=== PATIENT | female | born 1990 | race Caucasian/White ===

== ENCOUNTER 2022-01-28 12:30 | Emergency (ER) | payer OTHER, SELFPAY ==
[2022-01-28] VITALS (10 sets, daily range): BP systolic 125–136; BP diastolic 72–77; PULSE 62–84; RESP 16–17; TEMP 36.9; O2SAT 99–100
--- NOTE | ~2022-01-28 | US_ITS ---
EXAMINATION: US abdomen limited DATE: 01/28/2022 15:56 INDICATION: RUQ pain, nausea, vomiting TECHNIQUE: Multiple grayscale and Doppler ultrasound images of limited portions of the abdomen were o btained. COMPARISON: None available. FINDINGS: Not visualized due to bowel gas. The liver parenchyma is echogenic. No surface nodularity. Normal hepatopetal flow in the main portal vein. The gallbladder is normal with no abnormal wall thic kening, pericholecystic fluid or stones. The common bile duct measures 2 mm. There was no sonographic Coyne sign. IMPRESSION: Pancreas not visualized. Echogenic liver, most commonly due to steatosis but also can be seen with he patitis and fibrosis. Reviewed, dictated and finalized at [facility]. IMPRESSION: Pancreas not visualized. Echogenic liver, most commonly due to steatosis but al so can be seen with hepatitis and fibrosis.
--- NOTE | ~2022-01-28 | CT_ITS ---
EXAMINATION: CT abdomen pelvis w con DATE: 01/28/2022 16:22 INDICATION: Upper abdominal pain, nausea, vomiting and diarrhea. TECHNIQUE: Computed tomography (CT) of the abdomen and pelvis was performed with 100 CC Omnipaque 350 intravenous contrast. Automated exposure control and iterative reconstruction technique were employe d. Exam dose: 780.23 mGy-cm total exam DLP. COMPARISON: 01/28/2022 abdominal ultrasound Limited examination FINDINGS: The lung bases are clear of infiltrate or consolidation. Normal heart size. No pericardial or pleural effusion. Hepatic steatosis. No hepatic space-occupying mass lesion. The gallbladder appears unremarkable. No b ile duct or pancreatic duct dilatation. No pancreatic mass lesion or calcification. Normal splenic si ze. Normal morphology of the adrenal glands. Occasional bilateral renal cysts measuring up to 1.6 cm on the left and 2 cm on the right. No urinary tract calculus or hydroureteronephrosis. The urinary bladder is unremarkable. There is an IUD within the uterus. Approximately 1.8 cm right ovarian cyst. Adnexal areas are otherwi se unremarkable. Normal caliber of the abdominal aorta. No intraperitoneal or retroperitoneal or pelvic mass lesion or adenopathy or ascites. There is some nonspecific shotty bilateral inguinal lymph nodes. Normal appendix. No bowel obstruction, bowel wall thickening, pneumatosis or intraperitoneal free air . Small fat-containing umbilical hernia. Included skeletal structures are unremarkable. IMPRESSION: Hepatic steatosis Bilateral renal cysts IUD within uterus 1.8 cm right ovarian cyst Normal appendix Reviewed, dictated and finalized at [facility]. Reviewed, dictated and finalized at location [facility].
[2022-01-28 12:59] LABS: Alanine Aminotransferase 29 U/L (6-35); Albumin Level 4.5 g/dL (3.5-5.1); Alkaline Phosphatase 77 U/L (38-126); Anion Gap 5 mmol/L (8-16); Aspartate Amino Transferase 32 U/L (14-36); Bilirubin,Total 0.7 mg/dL (0.2-1.3); Blood Urea Nitrogen 8 mg/dL (7-17); Calcium 8.7 mg/dL (8.4-10.2); Carbon Dioxide 22 mmol/L (22-30); Chloride 107 mmol/L (98-107); Estimated CRCL calculation 124 ml/min; Estimated Glomerular Filt Rate > 60; Glucose 109 mg/dL (65-110); Lipase 91 U/L (23-300); Potassium 3.8 mmol/L (3.4-5.0); Sodium 134 mmol/L (137-145)
[2022-01-28 13:33] LABS: Basophils Absolute Auto 0.1 K/mm3 (0.0-0.1); Basophils Percent Auto 0.7 % (0.2-1.2); Eosinophils Absolute Auto 0.2 K/mm3 (0-0.3); Eosinophils Percent Auto 2.8 % (0-4.4); Hematocrit 34.7 % (37.0-47.0); Hemoglobin 10.7 g/dL (12.0-15.0); Immature Granulocyte Absolute 0.02 K/mm3 (0.00-0.031); Immature Granulocyte Percent A 0.3 % (0-0.5); Immature Platelet Fraction Pct 4.9 % (0.9-11.2); Lymphocytes Absolute Auto 1.76 K/mm3 (0.9-3.2); Lymphocytes Percent Auto 26.1 % (18.3-44.2); Mean Corpuscular HGB Conc 30.8 g/dl (32-36); Mean Corpuscular Hemoglobin 20.4 pg (26-34); Mean Corpuscular Volume 66.1 fl (80-100); Monocytes Absolute Auto 0.4 K/mm3 (0.1-0.6); Monocytes Percent Auto 6.4 % (2.6-8.5); Neutrophils Absolute Auto 4.3 K/mm3 (1.3-6.7); Neutrophils Percent Auto 63.7 % (45.5-73.1); Platelet Count Result 226 k/mm3 (150-375); Red Blood Count 5.25 M/mm3 (4.2-5.4); Red Cell Distribution Width 21.8 % (11.5-14.5); White Blood Count 6.7 K/mm3 (4.5-10.0)
[2022-01-28 14:07] LABS: Anisocytosis 1+ (NORMAL); Hypochromasia 1+ (NORMAL); Platelet Estimate Adequate (Adequate)
--- NOTE | 2022-01-28 15:16 | ED.ABDPAIN ---
HPI - Abdominal Pain General Chief Complaint: Abdominal Pain Stated Complaint: abd pain, n/v Time Seen by Provider: 01/28/22 15:02 History of Present Illness HPI narrative: Patient is a 31-year-old female with a history of hepatitis C here for evaluation of nausea, vomiting and abdominal pain over the past day. Patient states that she was eating [employer] yesterday and senior care through eating her burger she began to feel nauseated. She threw up this morning once, and has felt nauseated all day. Additionally notes that she has had some right upper abdominal discomfort today. She is not attempted any p.o. today. Additionally reporting a diffuse frontal headache today that is mild in nature. Denies visual changes, weakness, neck stiffness. No neck pain, chest pain, shortness of breath, fevers, chills, loss of consciousness, diarrhea, constipation. Related Data Home Medications Medication Instructions Recorded Confirmed drospirenone (contraceptive) 4 mg 4 mg PO DAILY 07/28/21 (28) tablet (Slynd) levonorgestrel 20 mcg/24 hours (7 1 device intrauterine ONCE 07/28/21 yrs) 52 mg intrauterine device (Mirena) Allergies Allergy/AdvReac Type Severity Reaction Status Date / Time melatonin Allergy Severe Swelling Verified 01/28/22 12:37 Review of Systems Review of Systems: Gen: Denies fevers or chills Eyes: Denies eye pain or visual change ENT: Denies congestion Respiratory: Denies shortness of breath or cough CV: Denies chest pain or palpitations GI: Reports abdominal pain, nausea, vomiting. Denies diarrhea : denies burning, urgency, frequency or hematuria Musculoskeletal: Denies back pain or muscle pain Neuro: Reports frontal headache. Denies numbness, tingling, weakness or focal weakness Skin: Denies rash Except as documented, all other systems reviewed and negative PMFSH Surgical History Surgical History History of dilation and curettage History of gynecological procedure Mirena iud insertion - 07/28/2021 History of tubal ligation Family History Family History (Updated 07/28/21 @ 10:10 by Andreea Saldana MA) Son Asthma Grandparent Diabetes mellitus Heart disease Sibling Diabetes mellitus Mother Heart disease Social History Social History (Updated 07/28/21 @ 10:11 by Andreea Saldana MA) Smoking packs per day: 0.5 Smoking cigarettes per day: 10.0 Smoking status: Current some day smoker Tobacco type: cigarettes Alcohol intake: never Substance use: current Substance use type: marijuana 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 Normocephalic, atraumatic, OMM Neck: No meningismus. Full range of motion to the neck. RESPIRATORY: No respiratory distress. Clear to auscultation bilaterally with no rhonchi wheezing or rales. CARDIOVASCULAR: Regular rate and rhythm without murmurs rubs or gallops. ABDOMINAL: Tender to palpation in right upper quadrant. Soft, nondistended, no rebound tenderness or guarding MUSCULOSKELETAL: Moves all extremities. No clubbing, cyanosis or edema. NEURO: CN II-XII intact. Awake and alert. Following commands, speech normal, no focal deficits SKIN: Warm, dry. No rashes lesions or abrasions PSYCHIATRIC: Normal affect/mood Course Vital Signs Vital signs: Vital Signs Temperature 98.5 F 01/28/22 12:35 Pulse Rate 81 01/28/22 12:35 Respiratory Rate 16 01/28/22 12:35 Blood Pressure 136/74 01/28/22 12:35 Pulse Oximetry 99 01/28/22 12:35 Oxygen Delivery Room Air 01/28/22 12:35 Temperature 98.5 F 01/28/22 12:35 Pulse Rate 62 01/28/22 17:28 Respiratory Rate 17
[2022-01-28] MEDS: SODIUM CHLORIDE 0.9% IV 1,000 ML 999 ML IV CONT (15:28)
[2022-01-28] MEDS: ONDANSETRON INJ 4 MG/2 ML VIAL IV PUSH (15:28)
[2022-01-28] MEDS: diphenhydrAMINE HCl INJ 50 MG/ML VIAL 25 MG IV PUSH (16:25)
[2022-01-28] MEDS: METOCLOPRAMIDE HCL INJ 10 MG/2 ML VIAL IV PUSH (16:25)
[2022-01-28] MEDS: FAMOTIDINE 20 MG/2 ML VIAL IV PUSH (16:26)
[2022-01-28 16:46] LABS: Appearance Urine Clear (Clear); Bilirubin Urine Negative (Negative); Blood Urine 2+ (Negative); Color Urine Yellow (Yellow); Glucose Urine UA Negative (Negative); Ketones Urine Negative (Negative); Leukocyte Esterase Ur Trace LEU/UL (Negative); Nitrate Urine Negative (Negative); Protein Urine Negative (Negative); Specific Grav Ur 1.015 (1.001-1.035)
[2022-01-28 16:52] LABS: Bacteria Urine Trace /hpf; RBC Urine 0-2 /hpf (0-2); Squamous Epithelial Cell Urine Occasional /hpf (Few); WBC Urine 0-3 /hpf
[2022-01-28 16:56] LABS: Add Urine Microscopic? YES
== END 2022-01-28 17:29 | disposition home or self-care (01) ==
PROVIDERS: Emergency Medicine; Emergency Provider Emergency Medicine
DX: K52.9 Noninfective gastroenteritis and colitis, unspecified (principal); B19.20 Unspecified viral hepatitis C without hepatic coma; F17.210 Nicotine dependence, cigarettes, uncomplicated; K76.0 Fatty (change of) liver, not elsewhere classified; N28.1 Cyst of kidney, acquired; Z97.5 Presence of (intrauterine) contraceptive device; N83.201 Unspecified ovarian cyst, right side
CPT/HCPCS: 36415; 74177; 76705; 80053; 81001; 83690; 85025; 85055; 96361; 96374; 96375; 99284; J1200; J2405; J2765; J7030; Q9967